=== PATIENT | female | born 1965 | race Caucasian/White ===

== ENCOUNTER 2016-12-24 07:36 | Day surgery (SDC) | payer OTHER ==
[~2016-12-24] VITALS: Ht 154.9 cm; Wt 74.9 kg
[~2016-12-24 07:36] MED LIST: ESTRACE1 MG PO; NORVASC10 MG PO; ONE DAILY1 EAC3 PO; PRILOSEC20 MG PO; PROZAC20 MG PO; VASOTEC10 MG PO; ZYRTEC10 M2 PO
[2016-12-24 08:37] VITALS: BP 132/74
[2016-12-24 11:30] VITALS: BP 137/88
[2016-12-24 12:22] VITALS: BP 119/72
[2016-12-24 13:17] VITALS: BP 137/84
== END 2016-12-24 13:41 | disposition home or self-care (01) ==
LOC: SDC 07:36
PROC: 0TUC0JZ Supplement Bladder Neck with Synthetic Substitute, Open Approach (ICD-10-PCS; principal; 2016-12-24)
DX: N39.3 Stress incontinence (female) (male) (principal); I10 Essential (primary) hypertension; K21.9 Gastro-esophageal reflux disease without esophagitis; F32.9 Major depressive disorder, single episode, unspecified
CPT/HCPCS: 87086; 93005; J0131; J0690; J1100; J1885; J2250; J2405; J3010